=== PATIENT | female | born 1990 | race Two or more races ===

== ENCOUNTER 2018-02-25 16:57 | Emergency (ER) | payer BC, MEDICAID ==
[~2018-02-25] VITALS: Ht 170.2 cm; Wt 122.5 kg
[2018-02-25 17:04] VITALS: BP 126/76
[2018-02-25] MEDS ORDERED: METOCLOPRAMIDE 10 MG/2 ML INJ VIAL IM ONE (17:20)
[2018-02-25] MEDS ORDERED: ACETAMINOPHEN 325 MG TAB PO ONE (17:20)
[2018-02-25] MEDS ORDERED: ACETAMINOPHEN EXTRA STRENGTH 500 MG TAB ONE (17:36)
[2018-02-25 17:39] LABS: BASOPHILS # (AUTO) 0.1 K/uL (0.00-0.22); BASOPHILS % (AUTO) 0.8 % (0.0-2.0); EOSINOPHILS # (AUTO) 0.2 K/uL (0-0.4); EOSINOPHILS % (AUTO) 2.2 % (0.0-4.0); HEMATOCRIT 33.7 % (36-48); HEMOGLOBIN 11.1 g/dL (12.0-16.0); LYMPHOCYTES # (AUTO) 2.1 K/uL (2.5-16.5); LYMPHOCYTES % (AUTO) 19.3 % (20.5-51.1); MEAN CORPUSCULAR HEMOGLOBIN 27 pg (27-31); MEAN CORPUSCULAR HGB CONC 33 g/dL (33-37); MEAN CORPUSCULAR VOLUME 81.4 fL (80-94); MONOCYTES # (AUTO) 0.6 K/uL (0.8-1.0); MONOCYTES % (AUTO) 5.5 % (1.7-9.3); NEUTROPHILS # (AUTO) 7.8 K/uL (1.8-7.7); NEUTROPHILS % (AUTO) 72.2 % (42.2-75.2); PLATELET COUNT (AUTO) 419 K/uL (140-450); RED BLOOD CELL COUNT(AUTO) 4.14 MIL/uL (4.20-5.40); RED CELL DISTRIBUTION WIDTH 14.2 % (11.6-13.7); WHITE BLOOD COUNT (AUTO) 10.8 K/uL (4.8-10.8)
[2018-02-25 17:47] LABS: ANION GAP 15.9 (8-16); CARBON DIOXIDE 27.2 mmol/L (21-32); CREATININE 0.8 mg/dL (0.6-1.3); POTASSIUM 4.1 mmol/L (3.5-5.1)
[2018-02-25 17:55] LABS: ALBUMIN 3.7 g/dL (3.4-5.0); TOTAL BILIRUBIN 0.2 mg/dL (0.0-1.0)
[2018-02-25 18:41] VITALS: BP 124/72
== END 2018-02-25 18:40 | disposition home or self-care (01) ==
LOC: MED 16:57
DX: R55 Syncope and collapse (principal)
CPT/HCPCS: 36415; 70450; 80053; 81025; 85025; 96372; 99285; J2765

== ENCOUNTER 2023-11-02 17:42 | Emergency (ER) | payer MEDICAID ==
[~2023-11-02] VITALS: Ht 167.6 cm; Wt 140.6 kg
[2023-11-02 18:01] VITALS: BP 128/81; PULSE 76; RESP 20; TEMP 97.2; O2SAT 96
[2023-11-02 19:08] LABS: FLU A ANTIGEN negative (NEGATIVE); FLU B ANTIGEN NEGATIVE (NEGATIVE)
[2023-11-02] MEDS ORDERED: [UNRECOGNIZED DRUG - CODE] MM (19:47)
[2023-11-02 20:06] VITALS: BP 121/82; PULSE 77; RESP 20; TEMP 98; O2SAT 98
== END 2023-11-02 20:06 | disposition home or self-care (01) ==
LOC: MED 17:42
DX: J06.9 Acute upper respiratory infection, unspecified (principal); Z20.822 Contact with and (suspected) exposure to COVID-19; Z79.899 Other long term (current) drug therapy
CPT/HCPCS: 87081; 96372; 99283; 99284